=== PATIENT | female | born 1975 ===

== ENCOUNTER 2024-11-23 13:58 | Outpatient (AMB) | payer OTHER, SELFPAY ==
--- OUTSIDE RECORDS SUMMARY | 2023-08-06 10:30 | XMS_ITS ---
Author Organization [facility] Address [address] [place] [address] Care Team Providers Care Beater Tender Name Role Phone Chanel Hall Primary Care Provider Unavailabl Chauncey Bennett Unavailable [phone] Lindo Encounters Encounter Location Date Provider Diagnosis [address] [address] 08/06/2023 Chauncey Sarkar Plan Of Treatment No Information Progress Notes * Shandra BARNEYOB: 7 (49 yo F)Acc No.[id number]:08/06/2023 Progress Notes Patient: Cece CHAVIRA Provider: Stefano Sarkar DPM :1975 A ge:48 Y S ex:Female Date:08/06/2023 Address:[address] [place] [phone] Pcp:Chanel Hall Subjective: * Chief Complaints: * [address] Lindo. * Medical History: Objective: * Vitals: Assessment: Plan: * Treatment: * Images: * The named appointment provid er may or may not be the originator of this progress note, and it is not deemed complete until electronically signed by the appointment provider. Sign off status: Pending * Provider: Stefano Sarkar DPM Date: 0 08/06/2023 Generated for Printi ng/Fafilippo/eTransmitting on: 0 11/23/2024 05:41 PM EDT
--- OUTSIDE RECORDS SUMMARY | 2023-11-19 09:30 | XMS_ITS ---
Author Organization [facility] Address [address] [place] [address] Care Team Providers Care Home Sales Consultant Name Role Phone Chanel Hall Primary Care Provider Unavailabl Chauncey Bennett Unavailable [phone] Encounters Encounter Location Date Provider Diagnosis [facility] [address] [place] [phone] 11/19/2023 Chauncey Sarkar Plan Of Treatment No Information Progress Notes * Shandra BARNEYOB: 7 (49 yo F)Acc No.[id number]:11/19/2023 Progress Notes Patient: Cece CHAVIRA Provider: Stefano Sarkar DPM :1975 A ge:48 Y S ex:Female Date:11/19/2023 Address:[address] [place] [phone] Pcp:Chanel Hall Subjective: * Chief Complaints: * * Medical History: Objective: * Vitals: Assessment: Plan: * Treatment: * Images: * The named appointment provid er may or may not be the originator of this progress note, and it is not deemed complete until electronically signed by the appointment provider. Sign off status: Pending * Provider: Stefano Sarkar DPM Date: 11/19/2023 Generated for Keshia ruby/Ramya/Clairsmitting on: 11/23/2024 05:41 PM EDT
--- OUTSIDE RECORDS SUMMARY | 2024-02-10 12:00 | XMS_ITS ---
Author Organization [facility] Address [address] [place] [address] Care Team Providers Care Digital Director Name Role Phone Chanel Hall Primary Care Provider Unavailabl Chauncey Bennett Unavailable [phone] Encounters Encounter Location Date Provider [facility] [address] [place] [phone] 02/10/2024 Chauncey Sarkar Plan Of Treatment No Information Progress Notes * Shandra BARNEYOB: 7 (49 yo F)Acc No.[id number]:02/10/2024 Progress Notes Patient: Cece CHAVIRA Provider: Stefano Sarkar DPM :1975 A ge:48 Y S ex:Female Date:02/10/2024 Address:[address] [place] [phone] Pcp:Chanel Hall Subjective: * Chief Complaints: * [...] Date: 04/12/2023 Generated for Diptii flori/Faxing/eTransmitting on: 0 11/23/2024 05:41 PM EDT
--- NOTE | 2024-11-23 14:02 | A.OFFVIS_ITS ---
Intake Visit Reasons: 6 month migraine Allergies No Known Allergies Allergy (Verified 11/23/24 14:06) Medication List - Last Reconciled 11/23/24 by María Steele CNP meclizine 25 mg PO DAILY PRN trazodone 100 mg PO BEDTIME zolmitriptan 5 mg PO DAILY PRN HPI Comments Details: Migraines were about the same. May get few migraines a week, and then can go weeks at a time without any, worse around period. Migraines are associated with photophobia, nausea, and vomiting. She was taking zolmitriptan as needed which helped some if taken early enough, but rizatriptan seemed to work better. Rizatriptan works well if taken early. Triggers include stress, lack of sleep, and occasionally premenstrual. Sleep was not so good. Trazodone as needed did not help much and she was not taking it everynight. Some work-related stress. No vertigo recently. Hx of migraine headaches since 2005. No aura. Pain usually starts on right side behind the eye, mostly right-side headache which becomes quite intense with nausea, vomiting, photophobia, and sonophobia that can last all day. She used to take Isometheptene when she was in [place] and that helped her. When she came here. She has tried Imitrex and Relpax without relief. Her mother has a hx of migraines. Review of Systems Const Denies chills, Denies daytime sleepiness, Reports difficulty sleeping, Denies fatigue, Denies fever(s), Denies frequent falls, Reports headache(s), Denies increased appetite, Denies poor appetite, Denies snoring, Denies weakness, Denies weight gain and Denies weight loss Eyes Denies loss of vision ENT Denies vertigo, Denies dizziness, Reports headache(s) and Reports neck pain Card Denies chest pain at rest, Denies chest pain with activity, Denies syncope, Denies leg edema, Denies palpitations, Denies dyspnea and Denies dyspnea on exertion Resp Denies cough, Denies dyspnea, Denies dyspnea on exertion and Denies snoring GI Denies abdominal pain, Denies constipation, Denies heartburn, Denies diarrhea and Denies nausea Denies urinary frequency, Denies urinary incontinence and Denies urinary urgency Musc Denies abnormal gait, Denies back pain, Denies myalgias, Denies arthralgias, Reports neck pain, Denies numbness and Denies tingling Neuro Denies abnormal gait, Denies vertigo, Denies dizziness, Denies syncope, Denies frequent falls, Reports headache(s), Denies lack of coordination, Denies loss of vision, Denies memory loss, Denies numbness, Denies Other visual disturbances, Denies restless legs, Denies seizure-like activity, Denies tingling, Denies paresthesias, Denies tremor(s) and Denies weakness Psych Denies anxiety, Denies depression, Denies auditory hallucinations, Denies memory loss and Denies visual hallucinations Endo Denies fatigue and Denies palpitations Physical Exam Const Other: General Appearance:? normal, in no acute distress. Heart:? S1, S2 normal, no murmurs. Lungs:? clear anteriorly and posteriorly. Musculoskeletal:? normal. Extremities:? no edema. Psych:? alert, oriented, cognitive function intact, cooperative with exam. Neuro Other: Abnormal Neurological Findings:?none.? Mental Status: alert and oriented X 3. Normal attention, orientation, memory, and affect. Cranial Nerves: Pupils are equal, round, and reactive to light. External ocular muscles are intact. Visual lobo are full, no ptosis. Face is symmetrical, no facial weakness or droop. Facial sensations are normal. Tongue protrudes in midline. Palate elevates symmetrically. Shoulder shrugging is normal Motor Examination: Normal muscle tone, bulk and strength. No atrophy or fasciculations. No drift of the extended upper extremities. DTR 2+. Plantars are flexor. Sensory Exam: Normal light touch, temperature, pinprick, vibration, and joint- position sensations. Rhomberg sign is absent. Coordination: No ataxia. No titubation. Btvpnc-wl-lyll, abjn-katm-mngp test, and rapid alternating movements were normal. Gait Exam: Within normal limits. Cerebellar Signs: Bujldl-gp-hiwz and mlbf-xl-dbjy is normal. No dysdiadochokinesia. Extrapyramidal System: No tremor, rigidity with normal facial expressions. No bradykinesia. No bradyphrenia. Normal arm swing and posture. No propulsion or retropulsion. Speech: Normal. Assessment & Plan Assessment & Plan (1) Migraine: Code(s): G43.909 - Migraine, unspecified, not intractable, without status migrainosus Category: Medical Qualifiers: Intractability: not intractable Migraine type: unspecified Status migrainosus presence: without status migrainosus Qualified Code(s): G43.909 - Migraine, unspecified, not intractable, without status migrainosus Plan: Zolmitriptan helped if taken early, however she preferred rizatriptan and zolmitriptan was stopped. Start rizatriptan 10mg 1 tablet as needed for migraines. Start ondansetron 4mg 1 tablet as needed for nausea/vomiting. (2) Vertigo: Code(s): R42 - Dizziness and giddiness Category: Medical Plan: Continue meclizine 25mg 1 tablet daily as needed for dizziness. (3) Insomnia: Code(s): G47.00 - Insomnia, unspecified Category: Medical Qualifiers: Insomnia type: unspecified Qualified Code(s): G47.00 - Insomnia, unspecified Plan: Increase trazodone 150mg 1 tablet at bedtime as needed for sleep. Plan Meds tried: sumatriptan, eletriptan, zolmitriptan, amitriptyline Medications: New rizatriptan take 1 tab at onset of headache; if no relief may repeat 1 tab after at least 4 hrs; max = 2 tabs/24 hr PO 10 tabs 5RF 30 days ondansetron 4 mg PO DAILY PRN 10 tabs 5RF nausea and vomiting 30 days trazodone 150 mg PO BEDTIME PRN 30 tabs 2RF sleep 30 days Coding Level of Care Code Est Pt Level 4 (82144) Diagnoses Migraine without status migrainosus, not intractable, unspecified migraine type G43.909 Intractability: not intractable Migraine type: unspecified Status migrainosus presence: without status migrainosus Vertigo R42 Insomnia, unspecified type G47.00 Insomnia type: unspecified
--- OUTSIDE RECORDS SUMMARY | 2024-11-23 17:41 | XMS_ITS | Clinical Summary ---
Author Organization [facility] Address [address] [facility] [address] [place] [address] Care Team Providers Care Air Brake Man Name Role Phone Unavailable Primary Care Provider Unavailabl e Social History Tobacco Use Types Packs/Day Years Used Date Smoking Tobacco: Never Assessed Comments Unknown Sex and Gender Information Value Date Recorded Sex Assigned at Not on file Legal Sex Female 4:06 PM EST Gender Identity Not on file Sexual Orientation Not on file Plan of Treatment Health Maintenance Due Date Last Done Comments CT Colonography 1976 Colonoscopy 1976 Colorectal Cancer Screening 1976 Depression Screening 1976 FIT DNA/Cologuard 1976 FIT 1976 FOBT 1976 HIV Screening 1976 SDOH Screening 1976 Sigmoidoscopy 1976 Disability Screening 1976 Alcohol/Substance Use Screening 1988 Tobacco Screening 1988 Family Planning (PISQ) 05/28/1991 Hepatitis C Screening 1994 DTaP/Tdap/Td Vaccines (1 - Tdap) 05/28/1995 Hepatitis B Vaccines (1 of 3 - 19+ 3-dose series) 05/28/1995 Pap Smear 1997 Cervical Cancer Screening 2006 HPV/Cotest 2006 Mammogram 2016 COVID-19 Vaccine ( - 2023-2 5 season) 2024 Influenza Vaccine (#1) 2024 Zoster Vaccines (1 of 2) 2026 RSV Patients and Pa tients Aged 60 years or older (1 - 1-dose 75+ series) 05/28/2051 HIB Vaccines Aged Out No longer eligi ble based on patient's age to complete this topic HPV Vaccines Aged Out No longer eligi ble based on patient's age to complete this topic Hepatitis A Vaccines Aged Out No long er eligible based on patient's age to complete this topic IPV Vaccines Aged Out No longer eligi ble based on patient's age to complete this topic Meningococcal B Vaccine Aged Out No l onger eligible based on patient's age to complete this topic Meningococcal Vaccine Aged Out No israel murray eligible based on patient's age to complete this topic Pneumococcal Vaccine: Pediat rics (0 to 5 Years) and At-Risk Patients (6 to 49) Years Aged Out No longer eligible b ased on patient's age to complete this topic RSV under 20 months Aged Out No longe r eligible based on patient's age to complete this topic Rotavirus Vaccines Aged Out No longer eligible based on patient's age to complete this topic Insurance [facility]
--- OUTSIDE RECORDS SUMMARY | 2024-11-23 17:41 | XMS_ITS | Clinical Summary ---
Author Organization [facility] Address [address] [place] [address] Care Team Providers Care Veterans' Counselor Name Role Phone Unavailable Primary Care Provider Unavailabl e Source Comments PLEASE NOTE, if this patient is a minor, it may be UNLAWFUL to discuss sensitive information that is contained in these records (such as FAMILY PLANNING, MENTAL HEALTH or SUBSTANCE ABUSE) with the minor patient's parent or other person without the patient's specific authorization.[facility] Immunizations Immunization Administration Dates Next Due Moderna COVID-19 Vaccine, re d cap blue label, 12+ Primary Series 07/10/2020,06/12/2020 Social History Tobacco Use Types Packs/Day Years Used Date Smoking Tobacco: Never Assessed Social Connections Answer Date Recorded Social Connections and Isolation 0 06/12/2020 Financial Resource Strain Answer Date R ecorded Financial Resource Strain 0 2020 Stress Answer Date Recorded Stress 0 06/12/2020 Physical Activity Answer Date Recorded Physical Activity 0 06/12/2020 Food Insecurity Answer Date Recorded Food 0 06/12/2020 Transportation Needs Answer Date Record ed Transportation 0 06/12/2020 Housing Stability Answer Date Recorded Housing 0 06/12/2020 Safety and Environment Answer Date Patric rded Safety 0 06/12/2020 Utilities Answer Date Recorded Utilities 0 06/12/2020 Employment Answer Date Recorded Employment 0 06/12/2020 Sex and Gender Information Value Date Recorded Sex Assigned at Not on file Legal Sex Male 11:45 AM PDT Gender Identity Not on file Sexual Orientation Not on file Plan of Treatment Health Maintenance Due Date Last Done Comments Anxiety Screening 1976 Diabetes Screening 1976 Hepatitis C Screening 1976 Lipid Screening 1976 Tobacco Screening 1976 HIV Screening 05/28/1991 Hypertension Screening (#1) 1994 Imm-DTaP/Tdap/Td (1 - Tdap) 05/28/1995 Imm-Hepatitis B (1 of 3 - 19 + 3-dose series) 05/28/1995 CT Colonography 2021 Colonoscopy 2021 Colorectal Cancer Screening 2021 FIT/gFOBT 2021 Fecal DNA 2021 Flexible Sigmoidoscopy 2021 Alcohol and Drug Screen 03/09/2024 Depression Annual Screen 03/09/2024 [id number] ( season) 2024 021, 06/12/2020 Imm-Influenza (#1) 2024 Insurance [facility] [employer]
--- OUTSIDE RECORDS SUMMARY | 2024-11-23 17:41 | XMS_ITS | Patient Health Record ---
Author [facility] Address [address] [facility] [place] [address] Care Team Providers Care Electrical Engineering Teacher Name Role Phone Chanel Hall Primary Care Provider Chauncey León Unavailable [phone] Allergies No Known Allergies Reason For Referral No Information Medications Medication SIG (Take, Route, Fr equency, Duration) Notes Start Date End Date Status Physical Therapy . . . 2-3x/week; Durat ion: 3-4 weeks 10/01/2023 Active Nabumetone 750 MG 1 tablet Orally ONCE A DAY WITH FOOD; Duration: 30 day(s) 08/07/2023 Active Physical Therapy . . . 2-3x/week; Durat ion: 3-4 weeks 10/01/2023 Active Ciclopirox 0.77 % 1 application Toy Consultant ally Twice a day; Duration: 365 days Active Social History Tobacco Use: Social History Observation Description Date Details (start date - stop date) Never Smoker NA - NA Tobacco Use/Smoking Question Answer Notes Are you a: nonsmoker Alcohol Screen Question Answer Notes Did you have a drink containing alcohol in the p ast year? No Points 0 Interpretation Negative Tobacco use other than smoking: Question Answer Notes Are you an other tobacco user? No Problems Problem Type SNOMED Code ICD Code Onset Dates Problem Status W/U Status Risk Notes Problem Achilles bursitis (844180736) Achilles tendinitis of right lower extremity (M76.61) Active confirmed Problem Achilles bursitis (328326909) Achilles tendinitis of left lower extremity (M76.62) Active confirmed Problem Fungal infection of nail (401925209) Fungal infection of nail (B35.1) Active confirmed Rx management (4) Encounters Encounter Location Date Provider Diagnosis [facility] [address] [place] [phone] 02/10/2024 Chauncey Sarkar Plan Of Treatment Pending Test Test Name Order Date X ray : Foot, left 3V 07/09/2023 X ray : Foot, right 3V 07/09/2023 Insurance Providers Payer Name Payer Address Payer Phone Subscriber Number Group Number Insured Name Patient Relationship to Insured Coverage Start Date Coverage End Date [employer] [address] [place] [address] [phone] [id number] Cece Roach Self - patient is the insured Medical (General) History Medical History History ICD Code Arthritis Headaches/Migraines Surgical History Surgery Date(Month/Year) biopsy right breast
--- OUTSIDE RECORDS SUMMARY | 2024-11-23 17:42 | XMS_ITS ---
Author Name [facility] Organization Unknown Care Team Organization Name Specialty Phone Email Start Date End Da te [facility] Chanel Hall Primary Care 09/11/2022 024
== END 2024-11-23 14:25 | disposition home or self-care (01) ==
LOC: HO.HSM 13:59
PROVIDERS: PCP Internal Medicine; Visit Provider Registered Nurse
DX: G43.909 Migraine, unspecified, not intractable, without status migrainosus (principal); R42 Dizziness and giddiness; G47.00 Insomnia, unspecified
CPT/HCPCS: 99214

== ENCOUNTER 2025-02-09 14:29 | Outpatient (AMB) | payer OTHER, SELFPAY ==
--- OUTSIDE RECORDS SUMMARY | 2023-11-19 08:30 | XMS_ITS ---
Author Organization [facility] Address [address] [place] [address] Care Team Providers Care Warp Yarn Sorter Name Role Phone Chanel Hall Primary Care Provider Unavailabl Chauncey Bennett Unavailable [phone] Encounters Encounter Location Date Provider Diagnosis [facility] [address] [place] [phone] 11/19/2023 Chauncey Sarkar Plan Of Treatment No Information Progress Notes * Shandra BARNEYOB: 7 (49 yo F)Acc No.[id number]:11/19/2023 Progress Notes Patient: Cece CHAVIRA Provider: Stefano Sarkar DPM :1975 A ge:48 Y S ex:Female Date:11/19/2023 Address:[address] [place] [phone] Pcp:Chanel Hall Subjective: * Chief Complaints: * * Medical History: Objective: * Vitals: Assessment: Plan: * Treatment: * Images: * The named appointment provid er may or may not be the originator of this progress note, and it is not deemed complete until electronically signed by the appointment provider. Sign off status: Pending * Provider: Stefano Sarkar DPM Date: 0 11/19/2023 Generated for Keshia ruby/Ramya/Clairsmitting on: 04/12/2024 08:11 PM EST
--- OUTSIDE RECORDS SUMMARY | 2024-02-10 11:00 | XMS_ITS ---
Author Organization [facility] Address [address] [place] [address] Care Team Providers Care Gravel Inspector Name Role Phone Chanel Hall Primary Care Provider Unavailabl Chauncey Bennett Unavailable [phone] Encounters Encounter Location Date Provider [facility] [address] [place] [phone] 02/10/2024 Chauncey Sarkar Plan Of Treatment No Information Progress Notes * Shandra BARNEYOB: 7 (49 yo F)Acc No.[id number]:02/10/2024 Progress Notes Patient: Cece CHAVIRA Provider: Stefaon Sarkar DPM :1975 A ge:48 Y S ex:Female Date:02/10/2024 Address:[address] [place] [phone] Pcp:Chanel Hall Subjective: * Chief Complaints: * * Medical History: A rthritis, Headaches/Migraines. Objective: * Vitals: Assessment: Plan: * Treatment: * Images: * The named appointment provid er may or may not be the originator of this progress note, and it is not deemed complete until electronically signed by the appointment provider. Sign off status: Pending * Provider: Stefano Sarkar DPM Date: 04/12/2023 Generated for Diptii flori/Faxing/eTransmitting on: 1 04/12/2024 08:11 PM EST
--- NOTE | 2025-02-09 14:58 | A.OFFVIS_ITS ---
Intake Visit Reasons: 3m Allergies No Known Allergies Allergy (Verified 02/09/25 15:00) Medication List - Last Reconciled 02/09/25 by María Steele CNP meclizine 25 mg PO DAILY PRN ondansetron 4 mg PO DAILY PRN 30 days rizatriptan take 1 tab at onset of headache; if no relief may repeat 1 tab after at least 4 hrs; max = 2 tabs/24 hr PO 30 days trazodone 150 mg PO BEDTIME PRN 30 days HPI Comments Details: She was doing okay. Migraines were about the same, usually happening in cycles where she may get few migraines a week, and then can go weeks at a time without any, worse around period. Has some neck pain and tightness which seems to be triggering migraines recently with 3 migraines last week. Feels bump on back of head that gets bigger with neck pain and migraines. No head injuries. Migraines are associated with photophobia, nausea, and vomiting. Rizatriptan works well if taken early. She had tried many new pillows to see if that would help with neck without relief. Other triggers include stress, lack of sleep, and occasionally premenstrual. Sleep was a bit better with increased dose of trazodone. Some work-related stress. No vertigo recently. Hx of migraine headaches since 2005. No aura. Pain usually starts on right side behind the eye, mostly right-side headache which becomes quite intense with nausea, vomiting, photophobia, and sonophobia that can last all day. She used to take Isometheptene when she was in [place] and that helped her. When she came here. She has tried Imitrex and Relpax without relief. Her mother has a hx of migraines. Review of Systems Const Denies chills, Denies daytime sleepiness, Reports difficulty sleeping, Denies fatigue, Denies fever(s), Denies frequent falls, Reports headache(s), Denies increased appetite, Denies poor appetite, Denies snoring, Denies weakness, Denies weight gain and Denies weight loss Eyes Denies loss of vision ENT Denies vertigo, Denies dizziness, Reports headache(s) and Reports neck pain Card Denies chest pain at rest, Denies chest pain with activity, Denies syncope, Denies leg edema, Denies palpitations, Denies dyspnea and Denies dyspnea on exertion Resp Denies cough, Denies dyspnea, Denies dyspnea on exertion and Denies snoring GI Denies abdominal pain, Denies constipation, Denies heartburn, Denies diarrhea and Denies nausea Denies urinary frequency, Denies urinary incontinence and Denies urinary urgency Musc Denies abnormal gait, Denies back pain, Denies myalgias, Denies arthralgias, Reports neck pain, Denies numbness and Denies tingling Neuro Denies abnormal gait, Denies vertigo, Denies dizziness, Denies syncope, Denies frequent falls, Reports headache(s), Denies lack of coordination, Denies loss of vision, Denies memory loss, Denies numbness, Denies Other visual disturbances, Denies restless legs, Denies seizure-like activity, Denies tingling, Denies paresthesias, Denies tremor(s) and Denies weakness Psych Denies anxiety, Denies depression, Denies auditory hallucinations, Denies memory loss and Denies visual hallucinations Endo Denies fatigue and Denies palpitations Physical Exam Const Other: General Appearance:? normal, in no acute distress. Heart:? S1, S2 normal, no murmurs. Lungs:? clear anteriorly and posteriorly. Musculoskeletal:? normal. Extremities:? no edema. Psych:? alert, oriented, cognitive function intact, cooperative with exam. Neuro Other: Abnormal Neurological Findings:?none.? Mental Status: alert and oriented X 3. Normal attention, orientation, memory, and affect. Cranial Nerves: Pupils are equal, round, and reactive to light. External ocular muscles are intact. Visual lobo are full, no ptosis. Face is symmetrical, no facial weakness or droop. Facial sensations are normal. Tongue protrudes in midline. Palate elevates symmetrically. Shoulder shrugging is normal Motor Examination: Normal muscle tone, bulk and strength. No atrophy or fasciculations. No drift of the extended upper extremities. DTR 2+. Plantars are flexor. Sensory Exam: Normal light touch, temperature, pinprick, vibration, and joint- position sensations. Rhomberg sign is absent. Coordination: No ataxia. No titubation. Lpxspd-ry-ctmz, acov-eluh-fqwt test, and rapid alternating movements were normal. Gait Exam: Within normal limits. Cerebellar Signs: Rwpqmm-fm-dgpv and imoa-mq-udkl is normal. Extrapyramidal System: No tremor, rigidity with normal facial expressions. No bradykinesia. No bradyphrenia. Normal arm swing and posture. No propulsion or retropulsion. Speech: Normal. Assessment & Plan Assessment & Plan (1) Migraine: Code(s): G43.909 - Migraine, unspecified, not intractable, without status migrainosus Category: Medical Qualifiers: Migraine type: unspecified Status migrainosus presence: without status migrainosus Intractability: not intractable Qualified Code(s): G43.909 - Migraine, unspecified, not intractable, without status migrainosus Plan: Continue rizatriptan 10mg 1 tablet as needed for migraines. Continue ondansetron 4mg 1 tablet as needed for nausea/vomiting. Start cyclobenzaprine 5mg 1 tablet at bedtime as needed for muscle spasm/pain, use/side effect reviewed. CT head ordered. Follow up in 3 months or sooner as needed. (2) Vertigo: Code(s): R42 - Dizziness and giddiness Category: Medical Plan: Continue meclizine 25mg 1 tablet daily as needed for dizziness. (3) Insomnia: Code(s): G47.00 - Insomnia, unspecified Category: Medical Qualifiers: Insomnia type: unspecified Qualified Code(s): G47.00 - Insomnia, unspecified Plan: Continue trazodone 150mg 1 tablet at bedtime as needed for sleep. Plan Meds tried: sumatriptan, eletriptan, zolmitriptan, amitriptyline Orders: Orders CT head/brain wo IV con Today G43.909 - Migraine, unspecified, not intractable, without status migrainosus Medications: New cyclobenzaprine 5 mg PO BEDTIME 30 tabs 1RF 30 days Coding Level of Care Code Est Pt Level 4 (68462) Diagnoses Migraine without status migrainosus, not intractable, unspecified migraine type G43.909 Migraine type: unspecified Status migrainosus presence: without status migrainosus Intractability: not intractable Vertigo R42 Insomnia, unspecified type G47.00 Insomnia type: unspecified
--- OUTSIDE RECORDS SUMMARY | 2025-02-09 20:10 | XMS_ITS | Encounter Summary ---
Author Organization [facility] Address [address] [place] [address] Care Team Providers Care Wire Coating Operator Metal Name Role Phone Chanel Hall MD Primary Care Provider [phone] Encounter Details Date Type Department Care Team ([facility] st Contact Info) Description 12/26/2024 Results Follow-Up Adult Medicine [address] [phone] Kumar Talley PA [address] [place] [address] Social History Tobacco Use Types Packs/Day Years Used Date Smoking Tobacco: Never Smokeless Tobacco: Never Alcohol Use Standard Drinks/Week Comments Yes 0 (1 standard drink = 0.6 oz pur e alcohol) social Housing Instability Answer Date Recorde d Are you worried that in the next 2 months you may not have stable housing? No 08/25/2024 Food Access & Nutrition Answer Date Rec orded Do you have access to a vari ety of food including fruits and vegetables? Yes 08/25/2024 Access to Healthcare Answer Date Record ed Within the last 3 months, ho w many times did you visit the emergency department for your medical care? 0 08/25/2024 Health Literacy Answer Date Recorded How often do you need to hav e someone help you when you read instructions, pamphlets, or other written material from your doctor or pharmacy? Rarely 08/25/2024 Caregiver: How often do you need to have someone help you when you read instructions, pamphlets, or other written material from your doctor or pharmacy? Not on file 08/25/2024 Financial Risk Answer Date Recorded How hard is it for you to pa y for the very basics like food, housing, medical care, and air conditioning / heating? Hard 08/25/2024 Transportation Answer Date Recorded Has the lack of transportati on kept you from meetings, work, or from getting things needed for daily living? No Has the lack of transportati on kept you from medical appointments or from getting medications? No 08/25/2024 Social Isolation Answer Date Recorded How often do you feel lonely or isolated from th ose around you? Never 08/25/2024 Food Risk Answer Date Recorded Within the past 12 months we worried whether our food would run out before we got money to buy more. Never true 08/25/2024 Within the past 12 months th e food we bought just didn't last and we didn't have money to get more. Never true 08/25/2024 Dependent Care Answer Date Recorded Do you need help finding or paying for care for your loved ones. For example, child care attendant or elderly care for an older adult? No 08/25/2024 Education Answer Date Recorded Do you think completing more education or training, like finishing a GED, going to college, or learning a trade, would be helpful for you? Patient declined 08/25/2024 Employment and Income Answer Date Recor ded During the last four weeks, have you been actively looking for work? No 08/25/2024 Living Situation Answer Date Recorded What is your living situation? Unrecognized valu e 08/25/2024 Comments Unknown Sex and Gender Information Value Date Recorded Sex Assigned at Not on file Legal Sex Female 5:08 PM EST Gender Identity Not on file Sexual Orientation Not on file documented as of this encounter Plan of Treatment Upcoming Encounters Date Type Department Care Team (Late st Contact Info) Description 09/06/2025 4:00 PM EDT Office Visit Adult Medicine [address] [phone] Chanel Hall MD [address] [place] [address] documented as of this encounter Visit Diagnoses Not on filedocumented in this encounter Additional Health Concerns Assessment Noted Time PHQ-9 Depression Total Score: 0 08/26/19 25 3:23 PM EDT documented as of this encounter Care Teams Wire Coating Operator Metal Relationship Specialty Start Date End Date Chanel Hall MD [address] [place] [phone] PCP - General 04/29/22 documented as of this encounter
--- OUTSIDE RECORDS SUMMARY | 2025-02-09 20:10 | XMS_ITS | Clinical Summary ---
Author Organization [facility] Address [address] [facility] [address] [place] [address] Care Team Providers Care Certified Wellness Program Coordinator Name Role Phone Unavailable Primary Care Provider [...] 2006 Mammogram 2016 COVID-19 Vaccine ( - 2024-2 6 season) 2024 Influenza Vaccine (#1) 2024 Zoster [...] patient's age to complete this topic Insurance [facility]
--- OUTSIDE RECORDS SUMMARY | 2025-02-09 20:10 | XMS_ITS | Clinical Summary ---
Author Organization [facility] Address [address] [place] [address] Care Team Providers Care Surgery Scheduling Coordinator Name Role Phone Chanel Hall MD Primary Care Provider [phone] Allergies No known active allergies Medications medical supply, miscellaneous (MISCELLANEOUS MEDICAL SUPPLY MISC) MISC. DEVICES (SITZ BATH) MISC 1 Each by Does not apply route 2 times daily as needed (anal pain, likely hemorrhoid). 4 Active hydrocortisone (ANUSOL-HC) 2.5 % rectal cream Apply 1 Dose topically 2 times daily as needed (pain). 4 Active lidocaine-hydrocor tisone-aloe 3-2.5 % (7 gram) kit Place 1 Each rectally 2 times daily as needed (Hemorrhoid/p ain). 4 Active rizatriptan (MAXALT) 10 mg tablet Take 1 Tablet by mouth as needed. May repeat in 2 hours if needed Active meloxicam (MOBIC) 7.5 mg tablet Take 1 tablet (7.5 mg total) by mouth 1 (one) time each day if needed. 3 Active cholecalciferol (VITAMIN D-3) 50 mcg (2,000 unit) tablet Take 1 tablet (2,000 Units total) by mouth 1 (one) time each day. 3 Active diclofenac (VOLTAREN) 1 % topical gel Apply 1 g topically 2 times daily as needed for Other (Pain). 3 Active ZOLMitriptan (ZOMIG) 5 mg tablet take 1 tablet by mouth every day as needed for 30 days 5 Active traZODone (DESYREL) 100 mg tablet Take 1.5 tablets (150 mg total) by mouth at bedtime. 5 Active Active Problems Problem Noted Date Diagnosed Date Vitamin D deficiency 09/01/2024 Encounters Date Type Department Care Team Description 12/26/2024 7:23 AM EDT - 12/26/2024 11:59 PM EDT Hospital Encounter Radiology Department - [address] [phone] Abdominal mass, unspecified abdominal location Discharge Disposition: Home or Self Care 12/26/2024 Results Follow-Up Adult [address] [phone] Kumar Talley PA 12/19/2024 3:30 PM EDT Office Visit [address] [phone] Kumar Talley PA Insomnia, unspecified type (Primary Dx); Abdominal mass, unspecified abdominal location from Last 3 Months Immunizations Immunization Administration Dates Next Due Tdap Tetanus diptheria acell ular pertussis (Boostrix; Adacel) 7yo and older 06/18/2023 Surgical History Surgery Date Site/Laterality Comments OTHER SURGICAL HISTORY PROCEDURE: BREAST MASS CORE BIOPSY [facility] PATHOLGY EXAM BELT ABDOMINOPLASTY 10/08/2023 - 11/07/2023 [place] BREAST ENHANCEMENT SURGERY W IMPLANT 10/08/2023 - 11/07/2023 Bilateral TUBAL LIGATION Medical History Medical History Date Comments Onychomycosis DX:Onychomycosis Family History Medical History Relation Name Comments Other: thyroid cancer Daughter Lung cancer Maternal Grandmother smoker Relation Name Status Comments Daughter Alive Maternal Grandmother Social History Tobacco Use Types Packs/Day Years Used Date Smoking Tobacco: Never Smokeless Tobacco: Never Tobacco Cessation:Counseling Given: Not Answered Alcohol Use Standard Drinks/Week Comments Yes 0 [...] care for your loved ones. For example, childcare provider or elderly care for an older adult? [...] on file Sexual Orientation Not on file Obstetrics History Last Filed Vital Signs Vital Sign Reading Time Taken Comments Blood Pressure 108/72 12/19/2024 3:16 PM EDT Pulse 68 12/19/2024 3:16 PM EDT Temperature 36.3 C (97.4 F) 12/19/2024 3:16 PM EDT Respiratory Rate 14 12/19/2024 3:16 PM EDT Oxygen Saturation - - Inhaled Oxygen Concentration - - Weight 65.9 kg (145 lb 4.8 oz) 12/19/2024 3:16 P M EDT Height 154.9 cm (5' 1 ) 12/19/2024 3:16 PM EDT Body Mass Index 27.45 12/19/2024 3:16 PM EDT Plan of Treatment Upcoming Encounters Date Type Department Care Team (Late st Contact Info) Description 09/06/2025 4:00 PM EDT Office Visit Adult Medicine [address] [phone] Chanel Hall MD [address] [place] [phone] Health Maintenance Due Date Last Done Comments Hepatitis B Vaccines (1 of 3 - 19+ 3-dose series) 05/28/1995 Hepatitis C Screening 05/03/2022 Influenza Vaccine (#1) 2024 Cervical Cancer Screening: HPV 06/29/2025 06/29/2020 Social Influencers of Health Screening 08/25/2025 08/25/2024 Breast Cancer Screening 04/12/2026 04/12/2024 Cholesterol Screening (Lipid Panel) 09/22/2029 09/22/2024, 06/23/2023 DTaP,Tdap,and Td Vaccines (2 - Td or Tdap) 06/17/2033 06/18/2023 Colorectal Cancer Screening: Colonoscopy 07/20/2033 07/21/2023 RSV Immunization Adult Patients (1 - 1-dose 75+ series) 05/28/2051 COVID-19 Vaccine Discontinued 02/15/2021, 07/10/2020, 06/12/2020 HIV Screening Completed 09/11/2023, 09/11/2023 Depression Screening Completed 08/25/2024 HIB Vaccines Aged Out No longer eligi [...] on patient's age to complete this topic MMR Vaccines Aged Out No longer eligi ble based on patient's age to complete this topic Meningococcal ACWY Vaccine Aged Out N o longer eligible based on patient's age to complete this topic Meningococcal B Vaccine Aged Out No l onger eligible based on patient's age to complete this topic Pneumococcal Vaccine: Pediatrics (0 to 5 Years) and At-Risk Patients (6 to 49 Years) Aged Out No longer eligible based on patient's age to complete this topic RSV Immunization Patients Under 20 months Aged Out No longer eligible based on patient's age to complete this topic Varicella Vaccines Aged Out No longer eligible based on patient's age to complete this topic Procedures Procedure Name Priority Date/Time Associated Diagnosis Comments US ABDOMEN LIMITED Routine 12/26/2024 7: 51 AM EDT Abdominal mass, unspecified abdominal location LIPID PANEL WITH REFLEX TO DIRECT LDL Routine 09/22/2024 7:47 AM EDT Routine physical examination EXTERNAL MAMMOGRAM REPORT Routine 04/12/2024 3:53 PM EST HIV SCREENING Routine 09/11/2023 HPV Routine 06/29/2020 from Last 3 Months or Most Recently Relevant to Health Maintenance Results * US Abdomen Limited (12/26/2024 7:51 AM EDT) Anatomical Region Laterality Modality Body Ultrasound 12/26/2024 8:38 AM EDT Impressions 12/26/2024 8:42 AM EDT No sonographic abnormality in the area of the palpable lump. -------- FINAL REPORT -------- Dictated By: Ligia Aldrich Dictated Date: 12/26/2024 08:38 ET Assigned Physician: Ligia Aldrich Reviewed and Electronically Signed By: Ligia Aldrich Signed Date: 12/26/2024 08:42 ET Workstation ID: [id number] Transcribed By: Self Edit Transcribed Date: 12/26/2024 08:38 ET Narrative 12/26/2024 8:42 AM EDT EXAM: Ultrasound abdomen, limited HISTORY: Palpable upper abdominal lump.. History of previous abdominoplasty in October 2023. COMPARISON: 01/19/2024 and 12/28/2023 FINDINGS: Palpable lump delineated by the patient at the midline abdomen, 4 cm superior to the umbilicus. Sonography shows no solid or cystic lesion or fluid collection. No sonographic evidence of a hernia. Procedure Note Ligia Aldrich MD - 12/26/2024 EXAM: Ultrasound abdomen, limited HISTORY: Palpable upper abdominal lump.. History of previousabdominoplasty in October 2023. COMPARISON: 01/19/2024 and 12/28/2023 FINDINGS: Palpable lump delineated by the patient at the midline abdomen, 4 cmsuperior to the umbilicus. Sonography shows no solid or cystic lesion orfluid collection. No sonographic evidence of a hernia. IMPRESSION: No sonographic abnormality in the area of the palpable lump. -------- FINAL REPORT -------- Dictated By: Ligia Aldrich Dictated Date: 12/26/2024 08:38 ET Assigned Physician: Ligia Aldrich Reviewed and Electronically Signed By: Ligia Aldrich Signed Date: 12/26/2024 08:42 ET Workstation ID: [id number] Transcribed By: Self Edit Transcribed Date: 12/26/2024 08:38 ET us Kumar COELLO IMG US PROCEDURES Final Result * Lipid panel with reflex to direct LDL (09/22/2024 7:47 AM EDT) Cholesterol 164 0 - 200 mg/dL LAB CHEMISTRY METHOD 09/22/2024 12:03 PM EDT [facility] Triglycerides 58 0 - 150 mg/dL LAB CHEMISTRY METHOD 09/22/2024 12:03 PM EDT [facility] HDL 65 >=40 mg/dL LAB CHEMISTRY METHOD 09/22/2024 12:03 PM EDT [facility] LDL Calculated 87 0 - 100 mg/dL LAB CHEMISTRY METHOD 09/22/2024 12:03 PM EDT [facility] VLDL Cholesterol Sundeep 11.6 mg/dL LAB CHEMISTRY METHOD 09/22/2024 12:03 PM EDT [facility] Non HDL Chol. (LDL+VLDL) 99 <145 mg/dL LAB CHEMISTRY METHOD 09/22/2024 12:03 PM EDT [facility] Chol/HDL Ratio 2.5 0.0 - 4.4 LAB CHEMISTRY METHOD 09/22/2024 12:03 PM EDT [facility] Blood Venous blood specimen / Unknown Venipuncture / Unknown 09/22/2024 7:47 AM EDT 09/22/2024 7:47 AM EDT Kumar COELLO LAB BLOOD ORDERABLES Final Res ult [facility] [address] [place] [address], * External Mammogram Report (04/12/2024 3:53 PM EST) Anatomical Region Laterality Modality Mammography Historical Provider IMG BI PROCEDURES Final R esult * HIV Screening (09/11/2023) Pathologist [facility] HIV Screening abstracted Historical Provider HEALTH MAINTENANCE Final Result * Cervical Cancer Screening: HPV (06/29/2020) Pathologist [facility] Cervical Cancer Screening: HPV abstracted, negative Historical Provider HEALTH MAINTENANCE Final Result from Last 3 Months or Most Recently Relevant to Health Maintenance Insurance [employer] Care Teams Surgery Scheduling Coordinator Relationship Specialty Start Date End Date Chanel Hall MD [address] [place] [address] PCP - General 04/29/22
--- OUTSIDE RECORDS SUMMARY | 2025-02-09 20:11 | XMS_ITS | Patient Health Record ---
[facility] [place] Address [address] [facility] [place] [address] Care Team Providers Care Private Branch Exchange Service Adviser Name Role Phone Chanel Hall Primary Care Provider Chauncey León Unavailable [phone] Allergies No Known Allergies Reason For Referral [...] 10/01/2023 Active Ciclopirox 0.77 % 1 application Apple Thinner ally Twice a day; Duration: 365 days [...] W/U Status Risk Notes Problem Achilles bursitis (629030257) Achilles tendinitis of right lower extremity (M76.61) Active confirmed Problem Achilles bursitis (954722874) Achilles tendinitis of left lower extremity (M76.62) Active confirmed Problem Fungal infection of nail (675956680) Fungal infection of nail (B35.1) Active confirmed Rx management (4) Encounters Encounter Location Date Provider Diagnosis [facility] [address] [place] [phone] 02/10/2024 Chauncey Sarkar Plan Of Treatment Pending Test Test Name Order Date X ray : Foot, left 3V 07/09/2023 X ray : Foot, right 3V 07/09/2023 Insurance Providers Payer Name Payer Address Payer Phone Subscriber Number Group Number Insured Name Patient Relationship to Insured Coverage Start Date Coverage End Date [employer] [address] [place] [address] [phone] [id number] Cece Roach Self - patient is the insured Medical (General) History Medical History History ICD Code Arthritis Headaches/Migraines Surgical History Surgery Date(Month/Year) biopsy right breast
== END 2025-02-09 15:08 | disposition home or self-care (01) ==
LOC: HO.HSM 14:29
PROVIDERS: PCP Internal Medicine; Visit Provider Registered Nurse
DX: G43.909 Migraine, unspecified, not intractable, without status migrainosus (principal); R42 Dizziness and giddiness; G47.00 Insomnia, unspecified
CPT/HCPCS: 99214